=== PATIENT | female | born 1980 | race Caucasian/White ===

== ENCOUNTER 2016-07-10 03:41 | Emergency (ER) | payer BC ==
[~2016-07-10] VITALS: Ht 172.7 cm; Wt 108.9 kg
[2016-07-10] MEDS ORDERED: OXYCODON-ACETA1 EAC1 (03:47)
[2016-07-10] MEDS ORDERED: KETOROLAC TROME10 MG (03:48)
[2016-07-10 04:04] LABS: WBC 11.1 thou/uL (4.0-11.0)
[2016-07-10 04:07] LABS: ABSOLUTE NEUTROPHILS 8.1 thou/uL (1.4-8.2); BASOPHILS 0.7 % (0.0-2.0); EOSINOPHILS 0.9 % (0.0-3.0); HEMATOCRIT 30.3 % (37.0-47.0); HEMOGLOBIN 9.8 gm/dL (12.0-15.0); LYMPHOCYTES 17.4 % (24.0-44.0); MCH 24.2 pg (26.0-34.0); MCHC 32.2 g/dL (28.0-37.0); MCV 75.3 fL (80.0-100.0); MONOCYTES 7.7 % (1.0-8.0); PLATELET COUNT 288 thou/uL (150-400); POLYS 73.3 % (36.0-66.0); RBC 4.03 mil/uL (4.20-5.00); RDW 15.7 % (10.5-14.5)
[2016-07-10 04:08] LABS: MANUAL DIFF NO
[2016-07-10 04:18] LABS: URINE BILIRUBIN NEGATIVE (Negative); URINE BLOOD NEGATIVE (Negative); URINE COLOR YELLOW; URINE GLUCOSE-RANDOM* NEGATIVE (Negative); URINE KETONES NEGATIVE (Negative); URINE LEUKOCYTES-REFLEX NEGATIVE (Negative); URINE PROTEIN (DIPSTICK) NEGATIVE (Negative); URINE UROBILINOGEN 0.2 E.U./dl (0.2-1.0)
[2016-07-10 04:20] LABS: CALCIUM 8.5 mg/dL (8.5-10.1); CREATININE 1.3 mg/dL (0.6-1.0); POTASSIUM 3.7 mmol/L (3.5-5.1)
[2016-07-10] MEDS ORDERED: HYDROCODONE-APA1 TA1 PO (05:14)
[2016-07-10] MEDS ORDERED: ZOFRAN ODT4 MG PO (05:14)
[2016-07-10 05:40] VITALS: BP 105/55
== END 2016-07-10 05:42 | disposition home or self-care (01) ==
LOC: ER 03:41
PROVIDERS: Emergency Medicine
DX: N20.1 Calculus of ureter (principal)